=== PATIENT | female | born 2005 | race Caucasian/White ===

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

== ENCOUNTER 2023-10-23 15:19 | Emergency (ER) | payer OTHER ==
[~2023-10-23] VITALS: Ht 154.9 cm; Wt 41.7 kg
[2023-10-23 15:47] VITALS: BP 122/82
[2023-10-23 16:27] LABS: Source, Urine Clean Catch
[2023-10-23 16:32] LABS: Appearance, Urine Clear (Clear); Bilirubin, Urine Neg (Neg); Blood, Urine 4+ (Neg); Color, Urine Yellow (P-Yellow); Glucose Qualitative, Urine Neg (Neg); Ketones, Urine Neg (Neg); Leukocyte Esterase, Urine 2+ (Neg); Nitrite, Urine Neg (Neg); Protein, Urine 2+ (Neg); Urobilinogen, Urine NORM (Normal)
[2023-10-23 16:58] LABS: Bacteria Few /hpf; Mucus Light (0-Heavy); Squamous Epithelial Cells Few /hpf (Few)
[2023-10-23] MEDS ORDERED: IBU800 M1 PO (17:17)
[2023-10-23] MEDS ORDERED: CEPH500 PO ×2 (17:59→18:05)
[2023-10-23] MEDS ORDERED: Pyridium100 MG PO (17:59)
== END 2023-10-23 18:16 | disposition home or self-care (01) ==
LOC: ER 15:19
PROVIDERS: Physician Assistant
DX: N39.0 Urinary tract infection, site not specified (principal); Z91.048 Other nonmedicinal substance allergy status
CPT/HCPCS: 81001; 81025; 87086; 96372; 99283-25; A9270; J1885

== ENCOUNTER 2023-10-29 14:52 | Emergency (ER) | payer OTHER ==
[~2023-10-29] VITALS: Ht 154.9 cm; Wt 41.7 kg
[~2023-10-29 14:52] MED LIST changes: +CEPH500 PO; +IBU800 M1 PO; +Pyridium100 MG PO
[2023-10-29 15:40] LABS: BASOPHILS ABSOLUTE AUTO 0.06 K/mm3 (0.00-0.23); BASOPHILS PERCENT AUTO 1 % (0-2); EOSINOPHILS ABSOLUTE AUTO 0.12 K/mm3 (0.00-0.68); EOSINOPHILS PERCENT AUTO 2 % (0-6); Hematocrit 38.5 % (33.0-51.0); Hemoglobin 12.4 g/dL (11.5-16.0); IMMATURE GRAN ABSOLUTE AUTO 0.01 K/mm3 (0.00-0.10); IMMATURE GRAN PERCENT AUTO 0 % (0-1); LYMPHOCYTES ABSOLUTE AUTO 2.16 K/mm3 (0.84-5.20); LYMPHOCYTES PERCENT AUTO 36 % (21-46); MONOCYTES ABSOLUTE AUTO 0.36 K/mm3 (0.16-1.47); MONOCYTES PERCENT AUTO 6 % (4-13); Mean Corpuscular HGB 27.6 pg (26.0-34.0); Mean Corpuscular HGB Conc 32.2 g/dL (31.5-36.5); Mean Corpuscular Volume 86 fL (80-100); Mean Platelet Volume 9.9 fL (9.1-12.4); NEUTROPHILS ABSOLUTE AUTO 3.29 K/mm3 (1.96-9.15); NEUTROPHILS PERCENT AUTO 55 % (41-73); Platelet Count 269 K/mm3 (150-400); RDW Coefficient Variation 12.2 % (11.7-14.2); RDW Standard Deviation 38.4 fL (35.1-46.3)
[2023-10-29 15:57] LABS: Bilirubin, Total 0.3 mg/dL (0.1-1.0); Bun/Creatinine Ratio 30.8 (12.0-20.0); Calcium, Blood 8.8 mg/dL (8.5-10.1); Creatinine, Blood 0.78 mg/dL (0.40-1.00); Globulin, Blood 4.1 g/dL (2.2-4.0); Potassium, Blood 4.2 mmol/L (3.5-5.5); Total Protein, Blood 8.1 g/dL (6.4-8.2)
[2023-10-29 16:33] LABS: Source, Urine Clean Catch
[2023-10-29 16:48] LABS: Appearance, Urine Hazy (Clear); Blood, Urine Neg (Neg); Glucose Qualitative, Urine Neg (Neg); Ketones, Urine Neg (Neg); Leukocyte Esterase, Urine 1+ (Neg); Nitrite, Urine Pos (Neg); Protein, Urine 1+ (Neg); Specific Gravity, Urine 1.025 (1.003-1.022); Urobilinogen, Urine 3+ (Normal)
[2023-10-29 17:34] LABS: Bilirubin, Urine 2+ (Neg); Color, Urine Orange (P-Yellow)
[2023-10-29 17:43] LABS: Bacteria Mod /hpf; Red Blood Cells, Urine 0-2 /hpf (0-2); Squamous Epithelial Cells Few /hpf (Few)
[2023-10-29 17:44] LABS: Amorphous Light (0-Heavy); Mucus Light (0-Heavy)
[2023-10-29 18:00] VITALS: BP 107/71
[2023-10-29] MEDS ORDERED: Protonix40 MG PO (18:01)
[2023-10-29] MEDS ORDERED: [UNRECOGNIZED DRUG - CODE] PO (18:01)
== END 2023-10-29 18:16 | disposition home or self-care (01) ==
LOC: ER 14:52
PROVIDERS: Physician Assistant
DX: K29.70 Gastritis, unspecified, without bleeding (principal); Z88.8 Allergy status to other drugs, medicaments and biological substances
CPT/HCPCS: 80053; 81001; 83690; 84703; 85025; 87086; 99284; A9270

== ENCOUNTER 2025-09-03 17:05 | Emergency (ER) | payer OTHER ==
[~2025-09-03] VITALS: Ht 154.9 cm; Wt 45.0 kg
[~2025-09-03 17:05] MED LIST changes: +Protonix40 MG PO; +[UNRECOGNIZED DRUG - CODE] PO
[2025-09-03 17:14] VITALS: BP 131/93
[2025-09-03] MEDS ORDERED: ASPERFLEX1 EACH TOP (18:07)
== END 2025-09-03 18:15 | disposition home or self-care (01) ==
LOC: ER 17:05
DX: M54.50 Low back pain, unspecified (principal); Z91.048 Other nonmedicinal substance allergy status
CPT/HCPCS: 72100; 99283-25